=== PATIENT | female | born 1975 | race Asian ===

== ENCOUNTER 2017-03-19 11:03 | Outpatient (CLI) | payer OTHER ==
--- NOTE | 2017-03-19 11:46 | Mammography Report ---
BONE DENSITY STUDY: DEFINITIONS: BMD = Bone Mineral Density T-score = BMD related to mean peak bone mass of young adult (mean expressed in Standard Deviation) Z-score = Age matched BMD expressed in SD World Health Organization (WHO) Diagnostic Criteria Normal T-score > -1 SD Osteopenia T-score between -1 and -2.4 SD Osteoporosis T-score -2.5 SD or below FINDINGS: The weighted average BMD of lumbar spine L1-L4 is 0.864 with a T-score of -1.7. The weighted average BMD of hip is with a T-score of . IMPRESSION: The patient's T-score is diagnostic for osteopenia and average relative risk for fracture. NOTE: BMD is not the only risk factor for fracture; also consider factors such as the patient's age, risk of falling, previous osteoporotic fracture, family history of osteoporotic fractures, current smoker, and low body weight. Solorzano's triangle is a region of interest in femur, predominantly of trabecular bone. It is not a true anatomic site, and [facility] does not recommend its use clinically.
== END 2017-03-19 11:04 | disposition home or self-care (01) ==
LOC: MAMMO 11:03
PROVIDERS: ATTEND Advanced Practice Midwife
DX: M85.88 Other specified disorders of bone density and structure, other site (principal)
CPT/HCPCS: 77080

== ENCOUNTER 2019-10-20 18:52 | Emergency (ER) | payer OTHER ==
[2019-10-20] MEDS ORDERED: RABIES IMMUNE GLOBULIN P/F 300 UNIT/ML INJ 5 ML IM ONE (19:23)
[2019-10-20] MEDS ORDERED: DIPHtheria,PERTUSSIS(ACELL),TETANUS VACCINE/PF 0.5 ML VIAL IM ONE (19:23)
[2019-10-20] MEDS ORDERED: RABIES VACCINE, HUMAN DIPLOID/PF 2.5 UNIT/ML VIAL IM ONE (19:23)
[2019-10-20] MEDS ORDERED: MORPHINE 4 MG/1 ML INJ IV ONE (19:23)
--- NOTE | 2019-10-20 19:25 | Emergency Department Report ---
Upper Extremity - HPI Chief Complaint: Animal Bite Stated Complaint: DOG BITE Time Seen by Provider: 10/20/19 19:05 Upper Extremity: Left Wrist, Left Hand, Left Thumb Occurred When: Today Mechanism: Other Severity: severe Symptoms: Yes Pain with Movement, Yes Deformity, Yes Limited Range of Movement, Yes Swelling, Yes Bruising/Ecchymosis, Yes Laceration or Abrasion Other History: Patient is a 44-year-old female, [id number], states that she is not , denies fever, cough, and coronavirus risk factors, presents to the ER with a left hand and thumb laceration. Patient reports that 2 dogs, common and familiar in the neighborhood, entered her backyard, she does not think they were foaming at the mouth, but is not sure, and they attacked her canine. She fainted them off, and then they ran back, and 1 of them bit her on her left hand/thumb. She denies additional injuries, and denies additional com plaints. She has sharp throbbing aching pain, which increases with palpation, range of motion, and it decreases with rest. It does not radiate anywhere else. She denies additional injuries and complaints. ED Review of Systems ROS: Stated complaint: DOG BITE Other details as noted in HPI Comment: All other systems reviewed and negative Musculoskeletal: joint swelling, arthralgia, myalgia Skin: lesions ED Past Medical Hx - Past Medical History Previous Medical History?: No - Surgical History Past Surgical History?: No - Social History Smoking Status: Never Smoker Substance Use Type: None - Medications Home Medications: Home Medications Medication Instructions Recorded Confirmed Last Taken Type Amoxicillin/Potassium Clav 1 each PO BID #28 tablet 10/20/19 Unknown Rx [Augmentin 875-125 Tablet] Ibuprofen [Motrin] 400 mg PO Q8H PRN #30 tablet 10/20/19 Unknown Rx oxyCODONE /ACETAMINOPHEN [Percocet 1 tab PO Q6HR PRN #9 tablet 10/20/19 Unknown Rx 5/325] Upper Extremity Exam - Exam General: Vital signs noted. Moderately anxious. Alert and acting appropriately. No facial droop. Tongue midline. Extraocular movements intact bilaterally. Facial sensation intact to light touch in V1, V2, V3 distribution bilaterally. 5 and a 5 strength in 4 extremities. Sensation intact to light touch in 4 extremities. 2+ pulses noted in the bilateral upper extremities. There is a large gaping laceration noted to the thenar eminence of the left thumb. There is also a bite bridgette noted to the lateral aspect of the left wrist. There is appropriate capillary refill noted. Lumbricals are intact in the upper extremity left-sided digits. Thumb opposition is limited. Thumb abduction is limited. Thumb flexion and extension is limited. Thumb adduction appears to be intact. Numerous exposed muscle bellies are noted in the thenar eminence Head and Torso: No HEENT Abnormality, No Neck Tenderness, No Chest/Lungs Abnormality, No Abdominal Tenderness, No Back Tenderness Shoulder Exam: Yes Normal Range of Motion in Shoulder, No Shoulder Tenderness, No Clavicle Tenderness, No Shoulder Deformity, No AC Joint Tenderness Arm Exam: No Arm/Humerus Tenderness, No Arm Deformity Elbow: Yes Normal Range of Motion in Elbow, No Elbow Tenderness, No Elbow Deformity Forearm: No Forearm Tenderness, No Forearm Deformity, No Pain with Pronation, No Pain with Supination Wrist: Yes Normal ROM in Wrist, No Wrist Tenderness, No Wrist Deformity Hand: Yes Hand Tenderness, Yes Hand Deformity, Yes Digit Tenderness, Yes Digit(s) Deformity, Yes Tendon Dysfunction, No Normal ROM in Digit(s) CMS Exam: Yes Broken Skin, Yes Normal Distal Pulses, Yes Normal Capillary Refill, Yes Normal Distal Sensation ED Course Vital Signs 10/20/19 19:02 Temperature 97.9 F Pulse Rate 114 H Respiratory 20 Rate Blood Pressure 116/64 O2 Sat by Pulse 96 Oximetry ED Medical Decision Making - Lab Data Vital Signs 10/20/19 19:02 Temperature 97.9 F Pulse Rate 114 H Respiratory 20 Rate Blood Pressure 116/64 O2 Sat by Pulse 96 Oximetry - Radiology Data Radiology results: report reviewed, image reviewed interpreted by me: X-ray of the left hand demonstrates no obvious fracture or dislocation. No obvious foreign bodies are noted. Obvious soft tissue defects are noted. Print Report Referring Physician: CALRA MARTINEZ Patient Name: SPENCER SEVILLA Date of : 1975 Sex: Female Report Date: 2019-10-20 Report Status: Finalized Findings [facility] [address] [place] [address] XRay Report Signed Patient: SPENCER SEVILLA MR#: [id number] : 1975 Acct:[id number] Age/Sex: 44 / F ADM Date: 10/20/19 Loc: ED Attending Dr: Ordering Physician: CARLA MARTINEZ MD Date of Service: 10/20/19 Procedure(s): XR hand 3+V LT Accession Number(s): [id number] cc: CARLA MARTINEZ MD Fluoro Time In Minutes: LEFT HAND 3 VIEWS INDICATION: MAIN: blunt and penetrating trauma to left hand; Pt bit by dog on left hand attempting to break up a dog fight. Large open wound to palm/thumb of hand. COMPARISON: No relevant prior imaging study available. FINDINGS: There is a large soft tissue defect in the thenar region with several small foci of soft tissue gas. No foreign bodies. No acute skeletal abnormality. There are mild osteoarthrosis changes. IMPRESSION: 1. Open wound in the thenar region. No underlying acute skeletal abnormality. Signer Name: Christ Gonsalez MD Signed: 10/20/2019 7:57 PM Workstation Name: [id number] Transcribed By: JOHN Dictated By: Christ Gonsalez MD Electronically Authenticated By: Christ Gonsalez MD Signed Date/Time: 10/20/191956 DD/ 55 - Medical Decision Making Differential diagnosis, including but not limited to: Laceration, complex hand wound Assessment and plan: 44-year-old female with complex left thenar eminence lacerations, appear to be impeding multiple functions, including abduction, flexion, and opposition. She has intact pulses. Capillary refill is appropriate and brisk. This is a potentially debilitating injury, and therefore, requires emergent evaluation by hand specialist which we cannot provide at this hospital as we do not have a hand specialist. Vaccination status of the attacking canines is not known, and therefore, the patient will be given tetanus vaccination, as well as antibiotics, rabies immunoglobulin, and rabies vaccination. Discussed need for transfer with patient, who verbalized understanding, and who is amenable to this plan of care. Case, history, physical, examination was presented to hand surgeon at [facility], Dr. Murry, who graciously agreed to accept the patient as a transfer for services not available at this facility. At the moment, the patient is protecting her airway, and hemodynamically stable, and she is suitable for transportation for consultive services not available at this facility. Critical care attestation.: If time is entered above; I have spent that time in minutes in the direct care of this critically ill patient, excluding procedure time. ED Disposition Clinical Impression: Dog bite of left hand Qualifiers: Encounter type: initial encounter Qualified Code(s): S61.452A - Open bite of left hand, initial encounter Laceration of thumb with tendon involvement Qualifiers: Encounter type: initial encounter Laterality: left Qualified Code(s): S61.012A - Laceration without foreign body of left thumb without damage to nail, initial encounter Disposition: [id number]/[id number] SHRT-TRM GEN HOSP IP Is pt being admited?: No Does the pt Need Aspirin: No Condition: Good Additional Instructions: Rest, avoid heavy lifting. Take the antibiotics as directed. Take the pain me dications as needed and directed. Follow-up with an outpatient primary care doctor, urgent care center, or health department to complete rabies vaccination schedule. Patient was given rabies vaccination on today, day 0. She will also need follow-up vaccinations on day 3 ( october 22) , day 7 (october 26), and day 14 (november 02) Please follow-up with the recommendations that will be provided to the patient by receiving hand surgeon. Return to the emergency room right away with new, worsened or different symptoms, or symptoms not present on the initial emergency room evaluation. Prescriptions: Amoxicillin/Potassium Clav [Augmentin 875-125 Tablet] 1 each PO BID #28 tablet Ibuprofen [Motrin] 400 mg PO Q8H PRN #30 tablet PRN Reason: Pain , Severe (7-10) oxyCODONE /ACETAMINOPHEN [Percocet 5/325] 1 tab PO Q6HR PRN #9 tablet PRN Reason: Pain Referrals: [facility] [Provider Group] - 3-5 Days ERIC LUIS MD [Staff Physician] - 3-5 Days
[2019-10-20] MEDS ORDERED: MORPHINE 4 MG/1 ML INJ ONE (19:26)
[2019-10-20] MEDS ORDERED: AMPICILLIN/SULBACTA 3GM/100ML 3 GM/100 ML BAG IV ONE (19:47)
--- NOTE | 2019-10-20 20:02 | XRay Report ---
LEFT HAND 3 VIEWS INDICATION: MAIN: blunt and penetrating trauma to left hand; Pt bit by dog on left hand attempting to break up a dog fight. Large open wound to palm/thumb of hand. COMPARISON: No relevant prior imaging study available. FINDINGS: There is a large soft tissue defect in the thenar region with several small foci of soft tissue gas. No foreign bodies. No acute skeletal abnormality. There are mild osteoarthrosis changes. IMPRESSION: 1. Open wound in the thenar region. No underlying acute skeletal abnormality. Signer Name: Christ Gonsalez MD Signed: 10/20/2019 7:57 PM Workstation Name: [id number]
[2019-10-20 20:30] VITALS: BP 106/73
== END 2019-10-20 22:33 | disposition short-term general hospital (02) ==
LOC: ED 18:52
DX: S61.012A Laceration without foreign body of left thumb without damage to nail, initial encounter (principal); Z79.899 Other long term (current) drug therapy; Z88.2 Allergy status to sulfonamides; W54.0XXA Bitten by dog, initial encounter; Y93.89 Activity, other specified; Y92.89 Other specified places as the place of occurrence of the external cause; Y99.8 Other external cause status
CPT/HCPCS: 73130; 90375; 90471; 90472; 90675; 90715; 96365; 96375; 99284; J0295; J2270